=== PATIENT | male | born 1960 | race Caucasian/White ===

== ENCOUNTER 2018-02-19 11:02 | Emergency (ER) | payer OTHER ==
[~2018-02-19] VITALS: Ht 182.8 cm; Wt 72.6 kg
[2018-02-19] MEDS ORDERED: ANTIBIOTIC28.4 GM T (12:17)
[2018-02-19] MEDS ORDERED: DOXYCYCLINE100 M3 PO (12:17)
== END 2018-02-19 12:28 | disposition home or self-care (01) ==
LOC: ED 11:02
DX: L72.9 Follicular cyst of the skin and subcutaneous tissue, unspecified (principal); L08.9 Local infection of the skin and subcutaneous tissue, unspecified; F17.200 Nicotine dependence, unspecified, uncomplicated